=== PATIENT | female | born 1985 | race Caucasian/White ===

== ENCOUNTER 2016-06-23 14:00 | Emergency (ER) | payer OTHER ==
[~2016-06-23] VITALS: Ht 165.1 cm; Wt 64.0 kg
[2016-06-23 14:10] VITALS: BP 140/92
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
[2016-06-23] MEDS ORDERED: DIAZEPAM 5 MG TABLET PO ONE (14:30)
[2016-06-23] MEDS ORDERED: HYDROCODONE/APAP 5/325MG TABLET. PO ONE (14:30)
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
[2016-06-23] MEDS ORDERED: HYDR-971 PO (15:55)
[2016-06-23] MEDS ORDERED: ORPH100T PO (15:55)
[2016-06-23] MEDS ORDERED: NAPR550T PO (15:55)
== END 2016-06-23 16:00 | disposition home or self-care (01) ==
LOC: ER 14:00
DX: S16.1XXA Strain of muscle, fascia and tendon at neck level, initial encounter (principal); S76.011A Strain of muscle, fascia and tendon of right hip, initial encounter; R51 Headache; F41.9 Anxiety disorder, unspecified; V47.5XXA Car driver injured in collision with fixed or stationary object in traffic accident, initial encounter; Y93.I9 Activity, other involving external motion; Y92.410 Unspecified street and highway as the place of occurrence of the external cause; Y99.8 Other external cause status
CPT/HCPCS: 70450; 72125; 73502; 99284-25

== ENCOUNTER → 2016-09-14 | Outpatient (CLI) | payer OTHER ==
[~2016-09-14] MED LIST: HYDR-971 PO; NAPR550T PO; ORPH100T PO
[2016-09-14 22:10] LABS: HEP B SURFACE ABDY Reactive (.)
== END | disposition home or self-care (01) ==
LOC: LAB 12:19
PROVIDERS: ATTEND Family Medicine
DX: Z02.0 Encounter for examination for admission to educational institution (principal); B19.10 Unspecified viral hepatitis B without hepatic coma
CPT/HCPCS: 36415; 86706; 87340; 87341

== ENCOUNTER → 2019-11-19 | Outpatient (CLI) | payer OTHER ==
[~2019-11-19] MED LIST changes: +HYDR-3164 PO; -HYDR-971 PO; +NAPR-682 PO; -NAPR550T PO
== END | disposition home or self-care (01) ==
LOC: LAB 16:04
PROVIDERS: ATTEND Internal Medicine Pulmonary Disease
DX: R53.81 Other malaise (principal); R09.81 Nasal congestion; Z20.828 Contact with and (suspected) exposure to other viral communicable diseases
CPT/HCPCS: U0003-CS